=== PATIENT | female | born 1940 | race Caucasian/White ===

== ENCOUNTER 2022-09-01 16:08 | Inpatient (IN) | payer MEDICARE, SELFPAY ==
[2022-09-01 16:26] VITALS: BP 204/77; PULSE 71; RESP 16; TEMP 36.8; O2SAT 92
[2022-09-01] MEDS: Lisinopril 20 MG Tablet PO (17:07)
--- NOTE | 2022-09-01 17:42 | NURSING ---
pt stated she has had no vaccinations and does not want any
[2022-09-01] MEDS: metFORMIN HCl 500 MG Tablet PO (18:41)
[2022-09-01] MEDS: glipiZIDE 5 MG Tablet 2.5 MG PO (18:41)
[2022-09-01 19:04] VITALS: BP 139/64; PULSE 64; RESP 18; TEMP 36.6; O2SAT 95
[2022-09-01 19:51] VITALS: BMI 25.6
[2022-09-01 20:10] VITALS: O2SAT 96
--- NOTE | 2022-09-01 20:23 | EX.PCM.HP.RE ---
HPI - General General Date of Admission: 09/01/22 Date of Service: 09/01/22 Chief Complaint: Here for 3 hours daily rehabilitation, strengthening. HPI Narrative SHANTA MALONE, is a 81 Female who presents with followin08/31/2022 Patient presented to [facility] with right sided weakness, numbness. She had right sided weakness, numbness since 08/30/2022. Woke up with worsening numbness right side of face. In ER, she was hypertensive, with normal pulsox. H&H stable, UA negative, BUN 23, Creatinine 1.42. CT head negative, CTA head negative, CTA neck > 60% bilateral internal carotid arteries. Outside window for TPA. Admitted to [facility]. MRI brain showed acute ischemic infarct at the junction of the left posterior limb internal capsule, and posterior Putamen. PT/OT, Labetalol for blood pressure, restart Atorvastatin for stroke. Patient sees Dr. Alton Gardiner for bilateral carotid artery stenosis. SSI for Diabetes Mellitus II. 09/01/2022 Admit to for 3 hours daily rehabilitation, strengthening, prior to discharge home alone. [facility] Medical History (Updated 09/01/22 @ 20:[address] Lyle Gómez MD) Bilateral carotid artery stenosis Carpal tunnel syndrome of right wrist Coronary artery disease Diabetes History of ovarian cyst Hyperlipidemia Hypertension Kidney disease Nicotine dependence, cigarettes, uncomplicated Stroke/cerebrovascular accident Home Medications aspirin 81 mg capsule,delayed release 81 mg PO QODA [facility] 09/01/22 [History Last Taken Unknown] atorvastatin 40 mg tablet 40 mg PO QHS Cholestrol 09/01/22 [History Last Taken Unknown] furosemide 40 mg tablet (Lasix) 40 mg PO DAILY PRN Edema 09/01/22 [History Last Taken Unknown] glipizide 2.5 mg-metformin 500 mg tablet 1 tab PO BID Blood sugar 09/01/22 [History Last Taken Unknown] lisinopril 20 mg tablet 20 mg PO DAILY BP 09/01/22 [History Last Taken Unknown] Allergy/AdvReac Type Severity Reaction Status Date / Time nut - unspecified [nuts] AdvReac Severe Other Verified 09/01/22 16:47 Penicillins AdvReac Severe Other Verified 09/01/22 16:47 shellfish derived AdvReac Severe Other Verified 09/01/22 16:47 Sulfa (Sulfonamide AdvReac Severe Other Verified 09/01/22 16:47 Antibiotics) [sulfa drugs] Surgical History (Updated 09/01/22 @ 20:[address] Lyle Gómez MD) History of appendectomy History of carpal tunnel release History of hernia repair History of hysterectomy History of oophorectomy Social History (Updated 09/01/22 @ 20:[address] Lyle Gómez MD) household members: none Smoking Status: Heavy Smoker (>10/day) alcohol intake: never substance use type: does not use ROS Constitutional Constitutional: Denies chills, fever(s) or weight gain ENT HEENT: Denies headache(s), nasal congestion or nasal discharge Cardiovascular Cardiovascular: Denies chest pain or palpitations Respiratory/Chest Respiratory/Chest: Denies cough, excessive phlegm production or shortness of breath with exertion Gastrointestinal Gastrointestinal: Denies abdominal pain, nausea or vomiting Genitourinary Genitourinary: Denies dysuria Musculoskeletal Musculoskeletal: Denies joint pain or joint swelling Integumentary Integumentary: Denies rash or wounds Neurologic Neurologic: Denies focal weakness, numbness or tingling Psychiatric Psychiatric: Denies anxiety, auditory hallucinations, depression, homicidal ideation or suicidal ideation Vital Signs Vital Signs Vital Signs: 09/01/22 16:26 09/01/22 19:04 09/01/22 20:10 Temperature 98.2 F 97.9 F Temperature Source Temporal Temporal Pulse Rate 71 64 Respiratory Rate 16 18 Blood Pressure 204/77 H 139/64 H Blood Pressure Mean 119 89 Blood Pressure Source Monitor Monitor Blood Pressure Position Sitting Sitting Blood Pressure Location Right Forearm Left Arm Pulse Ox 92 95 96 Oxygen Delivery Method Room Air Room Air Room Air Weight Weight: 67.807 kg Body Mass Index (BMI) 25.6 Indicators for Scoring Admitted with or Primary Diagnosis of CVA/Stroke: Yes Hx of CVA/Stroke: No Modified [place] Score MRS Score at time of Evaluation: 4-Moderate/severe disability NIHSS NIHSS 1a. Level of Consciousness: Alert; keenly responsive 1b. LOC Questions: Answers BOTH questions correctly. 1c. LOC Commands: Performs both tasks correctly. 2. Best Gaze: Normal 3. Visual: No visual loss 4. Facial Palsy: Normal symmetrical movements 5a. Left Arm: No drift; arm holds 90 (or 45) degrees for full 10 seconds 5b. Right Arm: Some effort against gravity; 6a. Left Leg: No drift; leg holds 30-degree position for full 5 seconds 6b. Right Leg: Some effort against gravity; 7. Limb Ataxia: Present in 1 limb 8. Sensory: [id number] sensory loss; 9. Best Language: No aphasia; normal 10. Dysarthria: Normal 11. Extinction and Inattention: No abnormality Total: 6 Physical Exam Const alert General Appearance: cooperative HEENT normocephalic Eyes PERRL and EOMs intact bilaterally Neck supple, no JVD and no carotid bruits Resp normal respiratory effort, normal air movement and clear to auscultation bilaterally Cardio regular rate and regular rhythm GI normal to inspection, nondistended, normoactive bowel sounds, non-tender and non-distended Extremity normal capillary refill General Extremity: Negative for edema Skin no rashes or lesions noted General Skin Exam: no breakdown Neuro Neuro Narrative: Right hemiparesis. Psych affect normal Appearance: appropriate Assessment & Plan Assessment/Plan (1) Debility: (2) Left-sided cerebrovascular accident (CVA): (3) Right hemiparesis: (4) Nicotine dependence, cigarettes, uncomplicated: (5) Bilateral carotid artery stenosis: (6) Hyperlipidemia: (7) Diabetes mellitus: PLAN: Plan 81 year old female with below past medical history hospitalized for left sided stroke with right hemiparesis, admitted to for 3 hours daily rehabilitation, strengthening, prior to discharge home alone. Debility - PT/OT/ST. Pain - Tylenol 1000mg q6h prn pain (1-10). Bowel - senna/colace 2 tablets bid, Dulcolax 10mg pr daily prn, MOM 30ml daily prn. DVT prophylaxis - Lovenox 30mg sc daily. Stroke - Aspirin 81mg every other day. Hyperlipidemia - Atorvastatin 40mg qhs. Edema - Lasix 40mg daily prn. Diabetes Mellitus II - Metformin 500mg bid, Glipizide 2.5mg bid. Hypertension - Lisinopril 20mg daily.
[2022-09-01 22:00] VITALS: RESP 15
[2022-09-01] MEDS: Atorvastatin Calcium 40 MG Tablet PO (22:02)
[2022-09-01] MEDS: Senna/Docusate Sodium 1 Tablet 2 TABLET PO (22:02)
[2022-09-02] MEDS: Enoxaparin 30 MG/0.3 ML Syringe SC (05:06)
[2022-09-02 05:41] LABS: Hematocrit 31.5 % (37-47); Hemoglobin 10.1 g/dL (12.0-15.0); Mean Corp Hgb Conc 32.1 g/dL (32-36); Mean Corpuscular Hgb 32.4 pg (27.0-32.0); Mean Platelet Vol. 9.9 fl (6.2-12.0); Platelet Count 242 K/mm3 (150-450); RBC Distribution Width CV 12.6 % (11.6-14.6); RBC Distribution Width SD 46.6 fl (35.1-43.9); Red Blood Count 3.12 M/mm3 (4.2-5.4); White Blood Count 10.2 K/mm3 (4.4-11.0)
[2022-09-02 06:00] LABS: AST(SGOT) 11 U/L (15-37); Alanine Aminotransfer ALT/SGPT 19 U/L (13-56); Albumin, Serum 3.2 g/dL (3.2-5.0); Alkaline Phosphatase 74 U/L (45-117); Anion Gap 6 (5-15); BUN 33 mg/dL (7-18); BUN/Creat Ratio 17.8 RATIO (10-20); Chloride 109 mmol/L (98-107); Creatinine, Serum 1.85 mg/dL (0.55-1.02); EST Glomerular Filtration Rate 28 mL/min (>60); Est Glom Filt Rate - Afr Amer 34 mL/min (>60); Estimated Creatinine Clearance 20.59 ml/min; Globulin 3.3 g/dL (2.2-4.2); Glucose 120 mg/dL (74-106); Magnesium 2.1 mg/dL (1.6-2.6); Phosphorus 3.7 mg/dL (2.5-4.9); Potassium 4.1 mmol/L (3.5-5.1); Protein, Total 6.5 g/dL (6.4-8.2); Sodium Level 141 mmol/L (136-145)
[2022-09-02 07:22] VITALS: O2SAT 95
[2022-09-02 07:35] LABS: Bedside Glucose 122 mg/dL (74-106)
[2022-09-02 07:45] VITALS: BP 187/60; PULSE 76; RESP 16; TEMP 36.3; O2SAT 96
[2022-09-02] MEDS: Aspirin 81 MG TAB.CHEW PO (08:07)
[2022-09-02] MEDS: glipiZIDE 5 MG Tablet 2.5 MG PO ×2 (08:07→16:55)
[2022-09-02] MEDS: metFORMIN HCl 500 MG Tablet PO ×2 (08:07→16:56)
[2022-09-02] MEDS: Lisinopril 20 MG Tablet PO (08:09)
[2022-09-02] MEDS: Senna/Docusate Sodium 1 Tablet 2 TABLET PO (08:09)
--- NOTE | 2022-09-02 14:49 | CHAPLAIN ---
Type of Pastoral Visit _x__ Initial Visit ___ Follow-up Visit ___ On-call Visit ___ General Patient Visit ___ Spiritual Assessment ___ Family Conference ___ Bereavement ___ Rapid Response ___ Code Blue ___ Other (describe below) Pastoral Care Referral From _x__ Patient ___ Family ___ Nurse ___ Physician ___ Net Programmer Analyst ___ Underground Mine Machinery Mechanic ___ Other (describe below) Sacrament/Intervention _x__ Active listening ___ Anointing ___ Denominational ___ Bereavement ___ Communion _x__ Carmen exploration ___ _x__ Life review _x__ Prayer ___ Reconciliation ___ Sacrament of Sick ___ Supportive presence ___ Wedding ___ Other (describe below) Pastoral Comments patient welcomes spiritual care and emphasizes that her carmen and her pentecostalism are vital parts of her life; pt has led an active life and finds herself with changing circumstances; pt appears to be optimistic on recovery and willing to do her work; pt wants prayer and is open to further visits
--- NOTE | 2022-09-02 15:27 | PCM.RU.PYE ---
Admission Information Primary Diagnosis:: Stroke. Status Changes from Prescreening?: No changes Identified Actual Problem List:: Mobility Impaired, Ineffective Communication, Know.Dfct/Disease Process, BP, Hypertension and Alteration-Leisure Activ. Potential Problem List:: DVT, Bleeding, Infection, UTI, Aspiration, Falls, Skin Integrity and Depression Risk of Complications DVT: LMWH and ADITHYA Hose Bleeding: Monitor Lab Values, Nursing to Teach Precautions for anti-coagulation therapy. and Stroke patients assessed for lethargy or change in status. Infection: Clinical Staff to Monitor for S/S of infection: and S/S of infection include fever, redness, warmth, etc. Urinary Tract Infection: Monitor for frequency, burning, discomfort, or incontinence. and Nursing will obtain urine sample for urinalysis and C&S when ordered. Aspiration: Clinical staff will monitor for coughing, drooling, congestion., Speech will evaluate swallowing and dsyphasia. and Nursing will monitor patient swallowing during meals. Falls: Patient will be evaluated for Fall Precautions and Patient will be placed on Fall Precautions as indicated per protocol. Skin Breakdown: Nursing will assess skin daily using assessment tool. and Nursing will place on Skin Breakdown Precautions as indicated. Pain: Clinical staff will assess patient's pain level per protocol., Medications will be given, if needed, and the pain level reassessed. and Other methods: Massage, distraction, decrease stimulus, etc. used PRN. Plan of Care Patient requires physician specializing in physical medicine and rehab oversight to provide close medical supervision of rehab issues including: Pain Management, Sleep Problems, Bowel and Bladder, Medical and co-morbidity Management, DVT prophylaxis, Rehabilitation Leadership and Coordination of treatment team Patient needs Physical Therapy: For a minimum of 1 hour Patient needs Physical Therapy to improve:: Mobility, Strengthening, Transfers, ROM, Endurance, Stairs and Gait Patient needs Occupational Therapy: For a minimum of 1 hour Patient needs Occupational Therapy to improve ADL's incl.: Grooming, Bathing, Dressing, Toileting, Toilet transfers, Community Reintegration, Higher functioning activities, Household tasks, Adaptive Equipment and Other activities as determined Patient requires speech therapy: For a minimum of 1 hour Patient requires speech therapy for: Cognition and Language Skills Patient requires 24/7 Rehabilitation Nursing for: Pain Issues, Identifying and preventing risk factors, Monitoring and reporting current medical conditions, Assisting with ambulation, transfer, and all ADL's, Teaching patients about disease process and medications, Family teaching, Providing safe environment, Bowel and Bladder Issues, Skin integrity and Medication Management Patient needs Multiple Tube Winding Machine Operator/ Case Management for: Discharge Planning, Arranging Home Equipment or Services and Family Interventions Patient needs Dietary and Nutrition Services for: Adequate Nutrition, Nutritional Supplements and Nutritional Education Goals Patient will remain: free from falls Patient will perform bed mobility at: MOD I level of assist. Patient will complete transfers from bed to chair at: MOD I level of assist. Patient will ambulate: with MOD I assist Patient will complete upper body dressing at: MOD I level of assist. Patient will complete lower body dressing at: MOD I level of assist. Patient will complete toileting at: MOD I level of assist. Patient will perform bathing at: MOD I level of assist. Patient will complete grooming at: MOD I level of assist. Patient will complete home management skills at: MOD I level of assist. Patient will achieve: at MOD I assist Patient will have pain level of: of 3 or less Patient's skin will: remain intact and free from infection. Patient will receive: adequate nutrition. Discharge Planning Pt Prognosis for Sig. Practical Improv. w/in Reasonable Time: Good Estimated Length of stay (days): 21 Anticipated D/C Destination: Home with Home Health Was Preadmission Assessment Accurate?: Yes
[2022-09-02 16:35] VITALS: BP 167/82; PULSE 77
[2022-09-02 16:57] VITALS: PULSE 77
[2022-09-02] MEDS: Losartan Potassium 100 MG Tablet PO (16:57)
[2022-09-02] MEDS: Metoprolol Tartrate 25 MG Tablet 12.5 MG PO ×2 (16:57→21:00)
[2022-09-02 17:30] LABS: Bedside Glucose 188 mg/dL (74-106)
--- NOTE | 2022-09-02 18:43 | NURSING ---
Patient is pleasant and using bsc for transfers. Alert and oriented with cues.
[2022-09-02 19:41] VITALS: BP 140/72; PULSE 77; RESP 17; TEMP 36.4; O2SAT 96
[2022-09-02 21:00] VITALS: BP 140/72; PULSE 77
[2022-09-02] MEDS: Atorvastatin Calcium 40 MG Tablet PO (21:01)
[2022-09-03] MEDS: Enoxaparin 30 MG/0.3 ML Syringe SC (05:52)
[2022-09-03] MEDS: Acetaminophen 500 MG Tablet 1000 MG PO (05:52)
[2022-09-03 07:20] LABS: Bedside Glucose 138 mg/dL (74-106)
[2022-09-03 07:36] VITALS: BP 178/63; PULSE 59; RESP 16; TEMP 37; O2SAT 94
[2022-09-03] MEDS: Losartan Potassium 100 MG Tablet PO (07:48)
[2022-09-03] MEDS: metFORMIN HCl 500 MG Tablet PO ×2 (07:48→16:43)
[2022-09-03] MEDS: glipiZIDE 5 MG Tablet 2.5 MG PO ×2 (07:49→16:44)
[2022-09-03 07:51] VITALS: PULSE 59
[2022-09-03] MEDS: Metoprolol Tartrate 25 MG Tablet 12.5 MG PO ×2 (07:51→21:14)
[2022-09-03 17:31] LABS: Bedside Glucose 140 mg/dL (74-106)
[2022-09-03 19:29] VITALS: BP 160/90; PULSE 82; RESP 17; TEMP 36.4
[2022-09-03 21:14] VITALS: BP 160/90; PULSE 82
[2022-09-03] MEDS: Atorvastatin Calcium 40 MG Tablet PO (21:14)
[2022-09-04] MEDS: Enoxaparin 30 MG/0.3 ML Syringe SC (05:52)
[2022-09-04 06:26] LABS: Bedside Glucose 148 mg/dL (74-106)
[2022-09-04] MEDS: Aspirin 81 MG TAB.CHEW PO (07:53)
[2022-09-04] MEDS: metFORMIN HCl 500 MG Tablet PO ×2 (07:54→16:42)
[2022-09-04] MEDS: Losartan Potassium 100 MG Tablet PO (07:54)
[2022-09-04 07:55] VITALS: PULSE 77
[2022-09-04] MEDS: glipiZIDE 5 MG Tablet 2.5 MG PO ×2 (07:55→16:42)
[2022-09-04] MEDS: Metoprolol Tartrate 25 MG Tablet 12.5 MG PO ×2 (07:55→21:16)
[2022-09-04 08:00] VITALS: BP 180/80; PULSE 56; RESP 18; TEMP 36.6; O2SAT 97
[2022-09-04 10:14] VITALS: O2SAT 96
[2022-09-04 16:46] LABS: Bedside Glucose 112 mg/dL (74-106)
[2022-09-04 20:21] VITALS: BP 168/62; PULSE 82; RESP 16; TEMP 36.2; O2SAT 96
[2022-09-04 21:16] VITALS: BP 168/62; PULSE 82
[2022-09-04] MEDS: Atorvastatin Calcium 40 MG Tablet PO (21:17)
[2022-09-05] MEDS: Enoxaparin 30 MG/0.3 ML Syringe SC (05:32)
[2022-09-05 07:06] LABS: Bedside Glucose 141 mg/dL (74-106)
[2022-09-05] MEDS: metFORMIN HCl 500 MG Tablet PO ×2 (07:47→17:16)
[2022-09-05] MEDS: glipiZIDE 5 MG Tablet 2.5 MG PO ×2 (07:48→17:16)
[2022-09-05] MEDS: Losartan Potassium 100 MG Tablet PO (07:49)
[2022-09-05 07:50] VITALS: BP 158/65; PULSE 59; RESP 16; TEMP 36.3; O2SAT 97
[2022-09-05 07:51] VITALS: BP 158/65; PULSE 59
[2022-09-05] MEDS: Metoprolol Tartrate 25 MG Tablet 12.5 MG PO ×2 (07:51→21:08)
--- NOTE | 2022-09-05 09:50 | CASEMGMT ---
Social Work IDT met with patient and son via conference call for Team meeting. Discussed patient's progress in PT/OT/ST/SN. Educated to Medicare approval of 23 days with EDC 09/24. Pt wishing to DC prior. IDT encouraged pt to take it a week at a time, but this amount of time will provide for optimal improvement. Son agrees. Pts goal is to return home alone. SW to continue to follow for DC planning. Will ReTeam next week. YESSY PeoplesW
[2022-09-05] MEDS: amLODIPine 5 MG Tablet PO (11:01)
[2022-09-05 18:20] LABS: Bedside Glucose 145 mg/dL (74-106)
[2022-09-05 19:22] VITALS: BP 182/62; PULSE 58; RESP 18; TEMP 36.8; O2SAT 96
--- NOTE | 2022-09-05 19:22 | PN_ITS ---
Subjective Subjective Patient seen, examined on Team Rounds. Her son Jamie was available by telephone. She has made progress in therapy in the 5 days. Her sugars are well controlled, her blood pressure less so, but her blood pressure medications are continuing to be adjusted. She has no new problems, concerns, issues, complaints. Objective Data Objective Data Vital Signs: Vital Signs Temp Pulse Resp BP Pulse Ox O2 Del Method 97.4 F L 59 L 16 158/65 H 97 Room Air 09/05/22 07:50 09/05/22 07:51 09/05/22 07:50 09/05/22 07:51 09/05/22 07:50 09/05/22 07:50 Oxygen Delivery Method Room Air Weight: 67.807 kg Body Mass Index (BMI) 25.6 Intake & Output: Intake and Output for Last 24 Hours 09/03/22 09/04/22 09/05/22 23:59 23:59 23:59 Intake Total 50 / 50 Output Total 400 / 400 Balance -400 / -400 50 / 50 Lab / Micro Data Result Diagrams: 09/02/22 05:32 09/02/22 05:32 Labs: Laboratory Results - last 24 hr 09/05/22 06:40: POC Glucose 141 H 09/05/22 17:58: POC Glucose 145 H Physical Exam Const alert General Appearance: cooperative HEENT normocephalic Eyes PERRL and EOMs intact bilaterally Neck supple, no JVD and no carotid bruits Resp normal respiratory effort, normal air movement and clear to auscultation bilaterally Cardio regular rate and regular rhythm GI normal to inspection, nondistended, normoactive bowel sounds, non-tender and non-distended Extremity normal capillary refill General Extremity: Negative for edema Skin no rashes or lesions noted General Skin Exam: no breakdown Neuro Neuro Narrative: Mild right hemiparesis. Psych affect normal Appearance: appropriate Assessment & Plan Assessment/Plan (1) Debility: (2) Left-sided cerebrovascular accident (CVA): (3) Right hemiparesis: (4) Nicotine dependence, cigarettes, uncomplicated: (5) Bilateral carotid artery stenosis: (6) Hyperlipidemia: (7) Diabetes mellitus: PLAN: Plan 81 year old female with below past medical history hospitalized for left sided stroke with right hemiparesis, admitted to for 3 hours daily rehabilitation, strengthening, prior to discharge home alone. * Debility - PT/OT/ST. * Pain - Tylenol 1000mg q6h prn pain (1-10). * Bowel - senna/colace 2 tablets bid, Dulcolax 10mg pr daily prn, MOM 30ml daily prn. * DVT prophylaxis - Lovenox 30mg sc daily. * Stroke - Aspirin 81mg every other day. * Hyperlipidemia - Atorvastatin 40mg qhs. * Edema - Lasix 40mg daily prn. * Diabetes Mellitus II - Metformin 500mg bid, Glipizide 2.5mg bid. * Hypertension - Metoprolol 12.5mg bid, Losartan 100mg daily, Add Amlodipine 5mg daily today. * Nicotine dependence - Encouraged her to stop smoking. Capacity Capacity Assessment Tool Can the patient make a choice & communicate that choice?: Yes Can the patient understand benefits, risks and alternatives?: Yes Can the patient make a logical, rational choice?: Yes Is the choice the patient makes consistent w/ their values?: Yes Is there an impending, emergent risk to the patient?: No Does the patient have an Advance Directive?: Yes Is there a Surrogate Available?: Yes i.e. HCPOA: Yes i.e. close relative (spouse, child, parent, sibling)?: Yes
[2022-09-05 20:20] VITALS: O2SAT 96
[2022-09-05 21:08] VITALS: BP 182/62; PULSE 58
[2022-09-05] MEDS: Atorvastatin Calcium 40 MG Tablet PO (21:08)
[2022-09-06] VITALS (8 sets, daily range): BP systolic 108–158; BP diastolic 43–57; PULSE 57–63; RESP 16; TEMP 36.1–36.4; O2SAT 96–98
[2022-09-06] MEDS: Enoxaparin 30 MG/0.3 ML Syringe SC (05:08)
[2022-09-06 07:01] LABS: Bedside Glucose 137 mg/dL (74-106)
[2022-09-06] MEDS: amLODIPine 5 MG Tablet PO (08:20)
[2022-09-06] MEDS: Senna/Docusate Sodium 1 Tablet 2 TABLET PO ×2 (08:20→22:22)
[2022-09-06] MEDS: Metoprolol Tartrate 25 MG Tablet 12.5 MG PO ×2 (08:20→22:21)
[2022-09-06] MEDS: metFORMIN HCl 500 MG Tablet PO (08:23)
[2022-09-06] MEDS: Aspirin 81 MG TAB.CHEW PO (08:23)
[2022-09-06] MEDS: glipiZIDE 5 MG Tablet 2.5 MG PO (08:23)
[2022-09-06] MEDS: Losartan Potassium 100 MG Tablet PO (08:24)
--- NOTE | 2022-09-06 09:01 | PCM.PROGNOTE ---
Subjective Subjective Afebrile VSS - BP is not at goal. systolics are ranging form a low of 140 to a high of 182. diastolics are within goal. Blood pressure medications include amlodipine 5 mg daily in the a.m., losartan 100 mg daily in the a.m. and metoprolol 12.5 mg p.o. twice daily. Maintaining appropriate oxygen saturation on RA Oral intake is not being recorded. She did eat 75 to 100% of her breakfast this morning. Post void residuals are less than 100. Occasional urine incontinence. no BM since 09/02......has been refusing stool softeners since she had diarrhea on the . Blood sugar record was reviewed. All blood sugars are under 200. She is currently on glipizide 2.5 mg twice daily and Glucophage 500 mg twice daily. Discussed with nursing - no problems that need addressed Reviewed the PT/OT/ST notes Medication list reviewed. Currently on ASA and statin for stroke. BS's are controlled. Taking 30 mg Lovenox daily for DVT prophylaxis...... creat clearance is only 20.6 on 09/02/22. RF's for stroke include age, DM II (not adequately controlled), HTN, tobacco dependence, dyslipidemia, known carotid stenosis BL. PMH: BL carotid vascular stenosis (on CT angiography of neck on 08/31/22), HTN, DM II, tobacco dependence, CRF, ischemic stroke 08/31/22 with MRI showing ischemic infarct at the junction of the left posterior limb internal capsule and posterior putamen, BL maxillary retention cysts, COPD?( has used albuterol HFA in the past on review of her paperwork from [facility]. ECHO -ventricular hypertrophy with normal systolic function and an estimated ejection fraction of 55 to 60%. Diastolic dysfunction was present. Ventricular septum is severely increased at 1.5 cm. The left atrium is dilated right atrium is normal in size. LAB: TSH and free T4 are normal. Total cholesterol was 158, triglycerides 102, HDL 69 and LDL 69 on 40 mg of atorvastatin daily. Creatinine was 1. 5 7 with a BUN of 35 on 09/01/2022. Hemoglobin A1c is not adequately controlled at 7.5%. Hemoglobin on 09/01/2022 was 9.6, down from 11.7 on 08/31/2022. Platelets were normal. MCV was elevated at 95.9. Cora denies lightheadedness, vertigo, CP, SOB at rest, SOB with exertion, cough, nausea, vomiting, abd pain, diarrhea, constipation, dysuria, calf pain and ankle swelling. She denies cephalgia. She notices some numbness in her lower right face. Denies trouble swallowing. Objective Data Objective Data Vital Signs: Vital Signs Temp Pulse Resp BP Pulse Ox O2 Del Method 97.0 F L 60 16 140/57 H 98 Room Air 09/06/22 07:25 09/06/22 08:20 09/06/22 07:25 09/06/22 08:20 09/06/22 07:25 09/06/22 07:25 Oxygen Delivery Method Room Air Weight: 149 lb 7.82 oz Body Mass Index (BMI) 25.6 Intake & Output: Intake and Output for Last 24 Hours 09/04/22 09/05/22 09/06/22 23:59 23:59 23:59 Intake Total 50 / 50 180 / 180 Balance 50 / 50 180 / 180 Lab / Micro Data Result Diagrams: 09/06/22 10:00 09/06/22 10:00 Labs: Laboratory Results - last 24 hr 09/05/22 17:58: POC Glucose 145 H 09/06/22 06:41: POC Glucose 137 H Physical Exam Const alert, oriented x3 and no apparent distress Constitutional Narrative: Lying in bed at the time of my exam. She is pleasant, appropriate and talkative. General Appearance: cooperative HEENT normocephalic Mouth: dry mucous membranes Eyes EOMs intact bilaterally Eyes Narrative: Both pupils are irregular secondary to prior cataract extraction. The pupils are responsive to light. Neck No nuchal rigidity, supple and no carotid bruits General: trachea midline Resp normal respiratory effort, normal air movement and clear to auscultation bilaterally Effort and Inspection: Negative for tachypneic Cardio regular rate, regular rhythm, S1 normal heart sound, S2 normal heart sound, no murmurs, no rub and no gallops Cardio Narrative: No ectopy GI normal to inspection, nondistended, normoactive bowel sounds, soft to palpation and non-tender GI Narrative: No guarding with palpation. Extremity no calf tenderness General Extremity: Negative for clubbing or cyanosis Skin General Skin Exam: no breakdown Rashes: no rashes Neuro Neuro Narrative: Decreased sensation R face, arm and leg. Drift with the RUE but, the arm does not hit the bed. Mild ataxia with the RUE. No drift and no ataxia with the RLE. No dysarthria and no aphasia. Psych cooperative and affect normal Appearance: appropriate Assessment & Plan Assessment/Plan (1) Debility: (2) Left-sided cerebrovascular accident (CVA): PLAN: ischemic (3) Right hemiparesis: PLAN: with decreased sensation on the R face, RUE and RLE (4) Bilateral carotid artery stenosis: (5) Uncontrolled type 2 diabetes mellitus: (6) LVH (left ventricular hypertrophy): (7) Diastolic dysfunction: (8) Chronic renal failure: (9) Macrocytic anemia: (10) Nicotine dependence, cigarettes, uncomplicated: PLAN: Tobacco dependence counseling given. (11) Hyperlipidemia: PLAN: Plan 1. Hold the Glucotrol and the Metformin due to increasing renal failure. Start SSI with Lispro - low dose scale. 2. Stat BMP. Phos, mag, CBC with diff. 3. accurate I&O. 4. Daily weights 5. DC Norvasc and start Hydralazine for better BP control. Add PRN IV Hydralazine for sys>160 and diastolic>85. 6. Obtain baseline labs from Dr. Travis. 7. Dulcolax tab today since she has not had a BM in 4 days. I suspect she likely has increasing renal failure. Oral intakes not being recorded and no wt since admission but, suspect she is not drinking enough and may need IV fluids. Charges/Coding Visit Charges Inpatient E&M: 59671 Subs Hosp L3
[2022-09-06 10:47] LABS: Absolute Lymphocyte Count 2.53 X10^3/uL (0.83-4.51); Absolute Neutrophil Count 5.2 X10^3/uL (2.0-7.7); Basophil# 0.06 X10^3/uL; Basophil% 0.7 % (0-1); Eosinophil# 0.09 X10^3/uL; Eosinophils% 1.1 % (0-5); Hematocrit 33.3 % (37-47); Hemoglobin 11.3 g/dL (12.0-15.0); Lymphocyte # 2.53 X10^3/ul (0.83-4.51); Mean Corp Hgb Conc 33.9 g/dL (32-36); Mean Corpuscular Hgb 33.7 pg (27.0-32.0); Mean Corpuscular Volume 99.4 fL (81-99); Mean Platelet Vol. 11.2 fl (6.2-12.0); Monocyte# 0.53 X10^3/uL; Monocyte% 6.3 % (0-10); NRBC Flagged by Analyzer 0 % (0-5); Neutrophil % 61.7 % (47-70); Platelet Count 259 K/mm3 (150-450); RBC Distribution Width CV 12.3 % (11.6-14.6); RBC Distribution Width SD 44.8 fl (35.1-43.9); Red Blood Count 3.35 M/mm3 (4.2-5.4); White Blood Count 8.4 K/mm3 (4.4-11.0)
[2022-09-06 10:59] LABS: Anion Gap 5 (5-15); BUN 27 mg/dL (7-18); BUN/Creat Ratio 17.9 RATIO (10-20); Calcium,Total 9.1 mg/dL (8.5-10.1); Chloride 106 mmol/L (98-107); Creatinine, Serum 1.51 mg/dL (0.55-1.02); EST Glomerular Filtration Rate 35 mL/min (>60); Est Glom Filt Rate - Afr Amer 42 mL/min (>60); Estimated Creatinine Clearance 25.23 ml/min; Glucose 189 mg/dL (74-106); Magnesium 2.3 mg/dL (1.6-2.6); Potassium 4.1 mmol/L (3.5-5.1); Sodium Level 138 mmol/L (136-145)
[2022-09-06 11:02] LABS: Phosphorus 4.1 mg/dL (2.5-4.9)
[2022-09-06] MEDS: Bisacodyl 5 MG Tablet 10 MG PO (11:33)
[2022-09-06 12:06] LABS: Bedside Glucose 130 mg/dL (74-106)
[2022-09-06 13:42] LABS: Vitamin B12 255 pg/mL (211-911)
[2022-09-06] MEDS: hydrALAZINE 50 MG Tablet PO ×2 (14:29→22:22)
[2022-09-06 16:50] LABS: Bedside Glucose 143 mg/dL (74-106)
[2022-09-06] MEDS: Atorvastatin Calcium 40 MG Tablet PO (22:21)
[2022-09-06 23:16] LABS: Bedside Glucose 142 mg/dL (74-106)
[2022-09-07] VITALS (7 sets, daily range): BP systolic 128–133; BP diastolic 37–58; PULSE 54–58; RESP 16–58; TEMP 36.2–36.3; O2SAT 98–99; BMI 25.6
[2022-09-07] MEDS: hydrALAZINE 50 MG Tablet PO ×3 (04:42→22:02)
[2022-09-07] MEDS: Enoxaparin 30 MG/0.3 ML Syringe SC (04:43)
[2022-09-07 06:50] LABS: Bedside Glucose 155 mg/dL (74-106)
[2022-09-07] MEDS: Metoprolol Tartrate 25 MG Tablet 12.5 MG PO ×2 (08:36→22:02)
[2022-09-07] MEDS: Losartan Potassium 100 MG Tablet PO (08:36)
[2022-09-07] MEDS: Insulin Lispro 100 UNIT/ML INSULN.PEN SC ×4 (09:59→22:05)
--- NOTE | 2022-09-07 10:30 | PN_ITS ---
Subjective Subjective Afebrile Vital signs stable-blood pressure is improved today and is currently 130/50. Heart rate is 56. Maintaining appropriate oxygen saturation on room air. Better oral intake yesterday of 1710 cc. Ate 25-49% of breakfast......does better for lunch and supper usually Blood sugar record was reviewed and the blood sugars are under good control on the current drug regimen. She had to have a laxative yesterday for no BM since the and she had been refusing stool softeners. She had a loose stool and some nausea and unfortunately was told it was probably due to Hydralazine that was started yesterday and now she does not want to take the medication. Med list reviewed. The metformin and Glucotrol are on hold due to creat clear only being 20 recently. It is up to 25 yesterday but, will continue to hold. Continue SSI......she has only needed 1 unit of insulin since the SSI was started yesterday. awaiting the records from Dr. Travis to see what her baseline creat has been running over the past few months. B12 is 255 which is low normal. Vitamin D level is very low at 8 and folate is within normal limits. Claritin as needed she had some nausea this a.m. but this is resolved and she had no emesis. She is ready to eat her lunch. She denies abdominal pain. She also denies lightheadedness, vertigo, cephalgia, shortness of breath, chest pain, palpitations, dysuria and calf pain. She was able to complete her PT today. Objective Data Objective Data Vital Signs: Vital Signs Temp Pulse Resp BP Pulse Ox O2 Del Method 97.4 F L 56 L 16 130/50 H 99 Room Air 09/07/22 07:39 09/07/22 08:36 09/07/22 07:39 09/07/22 08:36 09/07/22 07:39 09/06/22 22:00 Oxygen Delivery Method Room Air Weight: 144 lb 2.917 oz Body Mass Index (BMI) 25.6 Intake & Output: Intake and Output for Last 24 Hours 09/05/22 09/06/22 09/07/22 23:59 23:59 23:59 Intake Total 1710 / 1710 120 / 120 Balance 1710 / 1710 120 / 120 Lab / Micro Data Result Diagrams: 09/06/22 10:00 09/06/22 10:00 Labs: Laboratory Results - last 24 hr 09/06/22 10:00: Phosphorus 4.1 09/06/22 10:00: Sodium 138, Potassium 4.1, Chloride 106, Carbon Dioxide 27.0, Anion Gap 5, BUN 27 H, Creatinine 1.51 H, Estim Creat Clear Calc 25.23, Est GFR (MDRD) Af Amer 42 L, Est GFR (MDRD) Non-Af 35 L, BUN/Creatinine Ratio 17.9, Glucose 189 H, Calcium 9.1, Magnesium 2.3 09/06/22 10:00: WBC 8.4, RBC 3.35 L, Hgb 11.3 L, Hct 33.3 L, MCV 99.4 H, MCH 33.7 H, MCHC 33.9 D, RDW Std Deviation 44.8 H, RDW Coeff of Daron 12.3, Plt Count 259, MPV 11.2, Immature Gran % (Auto) 0.200, Neut % (Auto) 61.7, Lymph % (Auto) 30.0, Gem % (Auto) 6.3, Eos % (Auto) 1.1, Baso % (Auto) 0.7, Absolute Neuts (auto) 5.2, Absolute Lymphs (auto) 2.53, Nucleated RBC % 0 09/06/22 10:00: Vitamin B12 255, Vitamin D 25-Hydroxy 8.0 09/06/22 10:00: Folate 15.80 09/06/22 11:34: POC Glucose 130 H 09/06/22 16:13: POC Glucose 143 H 09/06/22 22:20: POC Glucose 142 H 09/07/22 06:33: POC Glucose 155 H Micro: Microbiology 09/07/22 01:20 Stool Stool Occult Blood (AGUSTIN) - Final Physical Exam Const alert and no apparent distress Constitutional Narrative: sitting in the recliner at the bedside ready to eat her lunch. General Appearance: cooperative HEENT normocephalic Mouth: dry mucous membranes Resp clear to auscultation bilaterally Cardio regular rate, regular rhythm and no gallops GI normal to inspection, nondistended, normoactive bowel sounds, soft to palpation and non-tender GI Narrative: No guarding with palpation. Extremity no calf tenderness General Extremity: Negative for edema Skin General Skin Exam: no breakdown Rashes: no rashes Assessment & Plan Assessment/Plan (1) Debility: (2) Left-sided cerebrovascular accident (CVA): (3) Right hemiparesis: (4) Bilateral carotid artery stenosis: (5) Nicotine dependence, cigarettes, uncomplicated: (6) Chronic renal failure: PLAN: currently the creat clearance is < 30. We requested lab from the past 3-[address] Travis but, we were unfortunately sent only the labs we already have from her admission to [facility] and no info and what her baseline creat is. (7) Uncontrolled type 2 diabetes mellitus: PLAN: with a creat clearance less than 30 she should not be on Metformin due to the increased risk for lactic acidosis. (8) Vitamin D deficiency: (9) Hypertension: PLAN: Coming under better control with adjustments to the antihypertensive regimen. PLAN: Plan 1. Continue therapy 2. Add a vitamin D supplement to her daily drug regimen. 3. Continue hydralazine 4. Encouraged her to take the stool softeners so that we do not have to continue to give laxatives after she does not have a bowel movement for for 5 days. 5. Continue to hold Glucotrol and metformin. she is at risk for lactic acidosis with Metformin so unless the creat significantly improves will not likely be able to continue with this medication. Consider Amaryl 1 mg daily. Charges/Coding Visit Charges Inpatient E&M: 96887 Subs Hosp L2
[2022-09-07 11:20] LABS: Bedside Glucose 166 mg/dL (74-106)
[2022-09-07 17:20] LABS: Bedside Glucose 157 mg/dL (74-106)
[2022-09-07] MEDS: Atorvastatin Calcium 40 MG Tablet PO (22:02)
[2022-09-07 22:45] LABS: Bedside Glucose 235 mg/dL (74-106)
[2022-09-08] VITALS (7 sets, daily range): BP systolic 123–126; BP diastolic 40–65; PULSE 57–63; RESP 16–18; TEMP 36.3–36.6; O2SAT 97–100; BMI 25.6
[2022-09-08] MEDS: hydrALAZINE 50 MG Tablet PO ×3 (05:01→20:38)
[2022-09-08] MEDS: Enoxaparin 30 MG/0.3 ML Syringe SC (05:01)
[2022-09-08 07:01] LABS: Bedside Glucose 191 mg/dL (74-106)
[2022-09-08] MEDS: Senna/Docusate Sodium 1 Tablet 2 TABLET PO ×2 (08:08→20:38)
[2022-09-08] MEDS: Losartan Potassium 100 MG Tablet PO (08:08)
[2022-09-08] MEDS: Insulin Lispro 100 UNIT/ML INSULN.PEN SC ×4 (08:08→22:02)
[2022-09-08] MEDS: Aspirin 81 MG TAB.CHEW PO (08:08)
[2022-09-08] MEDS: Metoprolol Tartrate 25 MG Tablet 12.5 MG PO ×2 (08:08→20:38)
[2022-09-08] MEDS: Cholecalciferol (VIT D3) 25 MCG TABLET (1,000 UNITS) 50 MCG PO (08:08)
--- NOTE | 2022-09-08 10:00 | PCM.PROGNOTE ---
Subjective Subjective Afebrile VSS-blood pressure is well controlled now with transition to hydralazine. Heart rate is within normal limits this morning. Maintaining appropriate oxygen saturation on RA Oral intake is fair. She took 1140 p.o. and fluids yesterday. Blood sugar record was reviewed. Blood sugars have started to increase now that she is off Glucotrol and metformin. At bedtime blood sugar was 235 and the fasting this morning was 191. Discussed with nursing - no problems that need addressed Reviewed the PT/OT/ST notes Medication list reviewed. Denies N/abd discomfort/diarrhea today. She has been up and appropriate and doing everything asked of her by the therapists. she is pleasant. No lightheadedness and also denies cough, SOB, CP, dysuria. Objective Data Objective Data Vital Signs: Vital Signs Temp Pulse Resp BP Pulse Ox O2 Del Method 97.8 F 61 18 124/61 H 97 Room Air 09/08/22 07:21 09/08/22 08:08 09/08/22 07:21 09/08/22 08:08 09/08/22 07:21 09/08/22 07:21 Oxygen Delivery Method Room Air Weight: 145 lb 11.609 oz Body Mass Index (BMI) 25.6 Intake & Output: Intake and Output for Last 24 Hours 09/06/22 09/07/22 09/08/22 23:59 23:59 23:59 Intake Total 1710 / 1710 1140 / 1140 300 / 300 Output Total 450 / 700 550 / 550 Balance 1710 / 1710 690 / 440 -250 / -250 Lab / Micro Data Result Diagrams: 09/06/22 10:00 09/06/22 10:00 Labs: Laboratory Results - last 24 hr 09/07/22 10:53: POC Glucose 166 H 09/07/22 16:59: POC Glucose 157 H 09/07/22 21:33: POC Glucose 235 H 09/08/22 06:44: POC Glucose 191 H Micro: Microbiology 09/07/22 01:20 Stool Stool Occult Blood (AGUSTIN) - Final Physical Exam Const alert, oriented x3 and no apparent distress HEENT Mouth: dry mucous membranes Resp clear to auscultation bilaterally Cardio regular rate, regular rhythm and no gallops GI normal to inspection, nondistended, normoactive bowel sounds, soft to palpation and non-tender GI Narrative: no guarding with palpation Extremity no calf tenderness General Extremity: Negative for edema Skin General Skin Exam: no breakdown Rashes: no rashes Psych cooperative Psych Narrative: not anxious, short term memory is still and issue.......I had to explain again to her why it is important to take the stool softerners so we don't end up having to give laxatives when she does not go for 4 days in a row. Appearance: appropriate Assessment & Plan Assessment/Plan (1) Debility: (2) Left-sided cerebrovascular accident (CVA): (3) Right hemiparesis: (4) Hypertension: PLAN: Controlled with transitioning from Norvasc to Hydralazine TID. (5) Uncontrolled type 2 diabetes mellitus: (6) Chronic renal failure: PLAN: We still have not received any baseline labs for the past 6 months for kidney function from Dr. Travis's office. Oral intake has improved a little and she is no longer on a diuretic. PLAN: Plan 1. continue therapy 2. Discontinue metformin and Glucotrol and start Amaryl 1 mg p.o. daily-start today. Continue to monitor 4 times daily blood sugars for the next few days. Need to assume that she has at least stage 3 CRF.......Will recheck aother BMP over the weekend and continue to encourage increased fluid intake. Charges/Coding Visit Charges Inpatient E&M: 84602 Subs Hosp L2
[2022-09-08 11:20] LABS: Bedside Glucose 164 mg/dL (74-106)
[2022-09-08] MEDS: Glimepiride 1 MG Tablet PO (11:52)
[2022-09-08 16:30] LABS: Bedside Glucose 161 mg/dL (74-106)
[2022-09-08] MEDS: Atorvastatin Calcium 40 MG Tablet PO (20:38)
[2022-09-08 21:26] LABS: Bedside Glucose 192 mg/dL (74-106)
[2022-09-08 22:41] LABS: Bedside Glucose 162 mg/dL (74-106)
[2022-09-09] VITALS (8 sets, daily range): BP systolic 101–136; BP diastolic 33–55; PULSE 47–78; RESP 16–18; TEMP 36.3–36.6; O2SAT 95–96; BMI 25.6
[2022-09-09 06:26] LABS: Bedside Glucose 144 mg/dL (74-106)
[2022-09-09] MEDS: Enoxaparin 30 MG/0.3 ML Syringe SC (06:28)
[2022-09-09] MEDS: hydrALAZINE 50 MG Tablet PO ×3 (06:30→20:49)
[2022-09-09] MEDS: Cholecalciferol (VIT D3) 25 MCG TABLET (1,000 UNITS) 50 MCG PO (07:47)
[2022-09-09] MEDS: Glimepiride 1 MG Tablet PO (07:47)
[2022-09-09] MEDS: Senna/Docusate Sodium 1 Tablet 2 TABLET PO (07:47)
[2022-09-09] MEDS: Losartan Potassium 100 MG Tablet PO (09:46)
[2022-09-09] MEDS: Metoprolol Tartrate 25 MG Tablet 12.5 MG PO ×2 (09:46→20:48)
[2022-09-09 11:25] LABS: Bedside Glucose 238 mg/dL (74-106)
[2022-09-09] MEDS: Insulin Lispro 100 UNIT/ML INSULN.PEN SC ×2 (12:09→20:49)
--- NOTE | 2022-09-09 14:29 | NURSING ---
Notified Dr. Menon of pt's V.S. received order to administer Apresoline.
[2022-09-09 16:31] LABS: Bedside Glucose 111 mg/dL (74-106)
[2022-09-09] MEDS: Atorvastatin Calcium 40 MG Tablet PO (20:49)
[2022-09-09 22:26] LABS: Bedside Glucose 213 mg/dL (74-106)
[2022-09-10] VITALS (8 sets, daily range): BP systolic 107–120; BP diastolic 43–58; PULSE 54–77; RESP 14–16; TEMP 36.6–37.1; O2SAT 97–99; BMI 25.6
[2022-09-10] MEDS: hydrALAZINE 50 MG Tablet PO ×3 (06:23→20:29)
[2022-09-10] MEDS: Enoxaparin 30 MG/0.3 ML Syringe SC (06:23)
[2022-09-10 07:20] LABS: Bedside Glucose 121 mg/dL (74-106)
[2022-09-10] MEDS: Aspirin 81 MG TAB.CHEW PO (09:05)
[2022-09-10] MEDS: Glimepiride 2 MG Tablet PO (09:05)
[2022-09-10] MEDS: Losartan Potassium 50 MG Tablet PO (09:05)
[2022-09-10] MEDS: Metoprolol Tartrate 25 MG Tablet 12.5 MG PO ×2 (09:05→20:29)
[2022-09-10] MEDS: Cholecalciferol (VIT D3) 25 MCG TABLET (1,000 UNITS) 50 MCG PO (09:06)
[2022-09-10 11:31] LABS: Bedside Glucose 211 mg/dL (74-106)
[2022-09-10] MEDS: Insulin Lispro 100 UNIT/ML INSULN.PEN SC ×2 (12:22→16:41)
[2022-09-10 17:05] LABS: Bedside Glucose 171 mg/dL (74-106)
[2022-09-10] MEDS: Atorvastatin Calcium 40 MG Tablet PO (20:29)
[2022-09-10 22:55] LABS: Bedside Glucose 95 mg/dL (74-106)
[2022-09-11 05:32] VITALS: BP 129/50; PULSE 52
[2022-09-11] MEDS: hydrALAZINE 50 MG Tablet PO ×3 (05:32→22:00)
[2022-09-11] MEDS: Enoxaparin 30 MG/0.3 ML Syringe SC (05:32)
[2022-09-11 07:00] LABS: Bedside Glucose 128 mg/dL (74-106)
[2022-09-11 07:06] VITALS: RESP 16; TEMP 36.2; O2SAT 100
[2022-09-11 08:16] VITALS: BP 118/42; PULSE 55
[2022-09-11] MEDS: Cholecalciferol (VIT D3) 25 MCG TABLET (1,000 UNITS) 50 MCG PO (08:16)
[2022-09-11] MEDS: Metoprolol Tartrate 25 MG Tablet 12.5 MG PO ×2 (08:16→21:58)
[2022-09-11] MEDS: Glimepiride 2 MG Tablet PO (08:16)
[2022-09-11] MEDS: Losartan Potassium 50 MG Tablet PO (08:16)
[2022-09-11 12:15] LABS: Bedside Glucose 186 mg/dL (74-106)
[2022-09-11] MEDS: Insulin Lispro 100 UNIT/ML INSULN.PEN SC ×2 (12:46→16:33)
[2022-09-11 14:34] VITALS: BP 125/44; PULSE 55
[2022-09-11 15:18] VITALS: BMI 25.6
[2022-09-11 17:10] LABS: Bedside Glucose 176 mg/dL (74-106)
[2022-09-11 21:35] LABS: Bedside Glucose 121 mg/dL (74-106)
[2022-09-11 21:58] VITALS: BP 118/40; PULSE 54
[2022-09-11] MEDS: Senna/Docusate Sodium 1 Tablet 2 TABLET PO (21:58)
[2022-09-11] MEDS: Atorvastatin Calcium 40 MG Tablet PO (21:58)
[2022-09-11 22:00] VITALS: BP 118/40; BP 121/46; PULSE 54; PULSE 56; PULSE 71; RESP 16; TEMP 36; O2SAT 96; O2SAT 99
[2022-09-11 22:07] VITALS: BMI 25.6
[2022-09-12] VITALS (8 sets, daily range): BP systolic 120–151; BP diastolic 38–61; PULSE 49–83; RESP 16–18; TEMP 36.6–36.7; O2SAT 99; BMI 25.6
[2022-09-12] MEDS: Enoxaparin 30 MG/0.3 ML Syringe SC (05:33)
[2022-09-12] MEDS: hydrALAZINE 50 MG Tablet PO ×3 (05:33→21:56)
[2022-09-12 06:50] LABS: Bedside Glucose 114 mg/dL (74-106)
[2022-09-12] MEDS: Cholecalciferol (VIT D3) 25 MCG TABLET (1,000 UNITS) 50 MCG PO (07:47)
[2022-09-12] MEDS: Glimepiride 2 MG Tablet PO (07:47)
[2022-09-12] MEDS: Losartan Potassium 50 MG Tablet PO (07:47)
[2022-09-12] MEDS: Aspirin 81 MG TAB.CHEW PO (07:47)
[2022-09-12] MEDS: Metoprolol Tartrate 25 MG Tablet 12.5 MG PO ×2 (07:48→21:57)
[2022-09-12 11:25] LABS: Bedside Glucose 198 mg/dL (74-106)
--- NOTE | 2022-09-12 11:44 | PCM.PROGNOTE ---
Subjective Subjective Afebrile VSS-she is primarily bradycardic. Blood pressures are adequately controlled. Maintaining appropriate oxygen saturation on RA Oral intake is adequate Blood sugar record was reviewed. Blood sugars at lunchtime are mildly elevated. No recent blood sugars over 200. No hypoglycemia. Discussed with nursing - no problems that need addressed Reviewed the PT/OT/ST notes Medication list reviewed. Cora denies lightheadedness, vertigo, CP, SOB at rest, SOB with exertion, cough, nausea, vomiting, abd pain, diarrhea, constipation, dysuria, calf pain and ankle swelling. She is sleeping well and night and has been eating well. Fluid intake is less than I would like. Objective Data Objective Data Vital Signs: Vital Signs Temp Pulse Resp BP Pulse Ox O2 Del Method 97.9 F 57 L 18 146/47 H 99 Room Air 09/12/22 07:24 09/12/22 07:48 09/12/22 07:24 09/12/22 07:48 09/12/22 07:24 09/12/22 07:24 Oxygen Delivery Method Room Air Weight: 143 lb 11.862 oz Body Mass Index (BMI) 25.6 Intake & Output: Intake and Output for Last 24 Hours 09/10/22 09/11/22 09/12/22 23:59 23:59 23:59 Intake Total 1670 / 1670 1620 / 1620 120 / 120 Output Total 1150 / 1150 1550 / 1550 250 / 250 Balance 520 / 520 70 / 70 -130 / -130 Lab / Micro Data Result Diagrams: 09/14/22 05:59 09/14/22 05:59 Labs: Laboratory Results - last 24 hr 09/11/22 11:52: POC Glucose 186 H 09/11/22 16:28: POC Glucose 176 H 09/11/22 21:08: POC Glucose 121 H 09/12/22 06:14: POC Glucose 114 H 09/12/22 11:00: POC Glucose 198 H Micro: Microbiology 09/07/22 01:20 Stool Stool Occult Blood (AGUSTIN) - Final Physical Exam Const alert and no apparent distress General Appearance: cooperative Resp clear to auscultation bilaterally Auscultation: diminished lung sounds Cardio regular rate, regular rhythm, no murmurs and no gallops GI normal to inspection, nondistended, normoactive bowel sounds, soft to palpation and non-tender Extremity General Extremity: Negative for edema Skin General Skin Exam: no breakdown Rashes: no rashes Wounds: Negative for wounds noted Neuro CN's II-XII intact bilaterally Neuro Narrative: mild paresthesias of the R face, arm and leg Speech: speech normal Assessment & Plan Assessment/Plan (1) Debility: (2) Left-sided cerebrovascular accident (CVA): (3) Right hemiparesis: (4) Uncontrolled type 2 diabetes mellitus: (5) Chronic renal failure: PLAN: Plan 1. Continue therapy 2. CBC and BMP in the a.m. 3. Continue Amaryl 2 mg p.o. every morning. 4. Continue metoprolol 12.5 mg twice daily. We have not had to hold it for bradycardia and she is asymptomatic. The heart rate does increase above 60 with exertion. 5. DC sliding scale insulin Charges/Coding Visit Charges Inpatient E&M: 49260 Subs Hosp L2
[2022-09-12 16:26] LABS: Bedside Glucose 171 mg/dL (74-106)
[2022-09-12] MEDS: Atorvastatin Calcium 40 MG Tablet PO (21:56)
[2022-09-13] VITALS (8 sets, daily range): BP systolic 123–153; BP diastolic 35–48; PULSE 52–57; RESP 16–20; TEMP 36.2–36.9; O2SAT 96; BMI 25.6
[2022-09-13] MEDS: Enoxaparin 30 MG/0.3 ML Syringe SC (05:40)
[2022-09-13] MEDS: hydrALAZINE 50 MG Tablet PO ×3 (05:40→20:57)
[2022-09-13 07:10] LABS: Bedside Glucose 136 mg/dL (74-106)
[2022-09-13] MEDS: Senna/Docusate Sodium 1 Tablet 2 TABLET PO (08:12)
[2022-09-13] MEDS: Cholecalciferol (VIT D3) 25 MCG TABLET (1,000 UNITS) 50 MCG PO (08:12)
[2022-09-13] MEDS: Glimepiride 2 MG Tablet PO (08:13)
[2022-09-13] MEDS: Metoprolol Tartrate 25 MG Tablet 12.5 MG PO ×2 (08:18→20:56)
[2022-09-13] MEDS: Losartan Potassium 50 MG Tablet PO (08:50)
--- NOTE | 2022-09-13 13:25 | CASEMGMT ---
Social Work Team meeting held. Patient present. Attempted to contact patient son via conference call, patient son did not answer, voicemail left encouraging patient son to contact social work assistant to follow up on outcome of meeting. Team recommending for discharge date to be set for 09/16/2022. Patient is agreeable to discharge date and plans to discharge to home alone with patient son to check in with patient often. Patient reports to have a straight cane already set up in the home. Therapy recommending for patient to have continued outpatient physical and occupational therapy in the community, patient agreeable to this recommendation. Patient denies concerns on returning to the community. Proposed discharge date: 09/16/2022 PLAN: Home alone with outpatient therapy services. Social Work to continue to follow. Jesika KRISHNAMURTHY, ISABELLAS
--- NOTE | 2022-09-13 14:43 | PN_ITS ---
Subjective Subjective Cora was seen on team rounds today. No family was available to participate by phone. Afebrile VSS Maintaining appropriate oxygen saturation on RA Oral intake is good Discussed with nursing - no problems that need addressed Reviewed the PT/OT/ST notes Medication list reviewed. Cora denies SOB, CP, palpitations, lightheadedness, nausea/vomiting/abdominal pain, dysuria, cephalgia, calf pain. She is no longer incontinent of urine and is wearing her underwear today. She is in a good mood and she is very co operative. She tells me that she wants to go home. She tells me that she has a chronic cough due to bronchitis BUT, she has noticed that since she has been in the hospital and not smoking the cough is better! Tells me that her son told her if she stops smoking then he will too and she is going to try and stick to this. Objective Data Objective Data Vital Signs: Vital Signs Temp Pulse Resp BP Pulse Ox O2 Del Method 97.2 F L 52 L 16 153/48 H 96 Room Air 09/13/22 07:45 09/13/22 13:46 09/13/22 07:45 09/13/22 13:46 09/13/22 07:45 09/13/22 07:45 Oxygen Delivery Method Room Air Weight: 144 lb 9.972 oz Body Mass Index (BMI) 25.6 Intake & Output: Intake and Output for Last 24 Hours 09/11/22 09/12/22 09/13/22 23:59 23:59 23:59 Intake Total 1620 / 1620 1280 / 1280 440 / 440 Output Total 1550 / 1550 850 / 850 Balance 70 / 70 430 / 430 440 / 440 Lab / Micro Data Result Diagrams: 09/06/22 10:00 09/06/22 10:00 Labs: Laboratory Results - last 24 hr 09/12/22 16:04: POC Glucose 171 H 09/13/22 06:30: POC Glucose 136 H Micro: Microbiology 09/07/22 01:20 Stool Stool Occult Blood (AGUSTIN) - Final Physical Exam Const alert, oriented x3 and no apparent distress General Appearance: cooperative Resp normal respiratory effort, normal air movement and clear to auscultation bilaterally Cardio regular rate, regular rhythm, S1 normal heart sound, S2 normal heart sound and no gallops GI normal to inspection, nondistended, normoactive bowel sounds, soft to palpation and non-tender Extremity no calf tenderness General Extremity: Negative for edema Skin General Skin Exam: no breakdown Rashes: no rashes Neuro Neuro Narrative: She is ambulating with only a cane now. 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 Assessment & Plan Assessment/Plan (1) Debility: (2) Left-sided cerebrovascular accident (CVA): (3) Right hemiparesis: (4) Uncontrolled type 2 diabetes mellitus: (5) Vitamin D deficiency: (6) Hypertension: (7) Chronic renal failure: PLAN: Plan 1. Continue therapy 2. Plan DC home Monday. Son lives across the road and will be available to assist her. 3. recheck a BMP and an HH in the AM 4. DC the accuchecks - blood sugars are well controlled Charges/Coding Visit Charges Inpatient E&M: 75248 Subs Hosp L2
--- NOTE | 2022-09-13 16:52 | CASEMGMT ---
Social Work Telephone call from patient son, Jamie. Jamie reports to have received voicemail. This social worker aide updated Jamie that discharge date has been set for 09/16/2022. Jamie is agreeable to discharge date and plan for patient to discharge to home alone with Jamie to check in. This social worker aide communicating that physical and occupational therapy are recommending for patient to have continued services through outpatient care. Jamie reports that patient would like to have outpatient therapy services through [facility] outpatient clinic. Jamie reports to be able to transport patient to home. Jamie confirms that patient has transportation to outpatient therapy appointments and has all needed DME in the home. This social worker aide obtained order for outpatient PT/OT from Dr. Menon. Social Work to continue to follow to facilitate setting up outpatient therapy services. Proposed discharge date: 09/16/2022 PLAN: Discharge to home alone with outpatient therapy. Jesika KRISHNAMURTHY, MITCHEL
[2022-09-13] MEDS: Magnesium Hydroxide 30 ML UDC PO (20:56)
[2022-09-13] MEDS: Atorvastatin Calcium 40 MG Tablet PO (20:57)
[2022-09-14] VITALS (9 sets, daily range): BP systolic 115–142; BP diastolic 31–53; PULSE 52–63; RESP 16; TEMP 36.8–36.9; O2SAT 96–98; BMI 25.6
[2022-09-14] MEDS: Enoxaparin 30 MG/0.3 ML Syringe SC (05:46)
[2022-09-14] MEDS: hydrALAZINE 50 MG Tablet PO ×3 (05:46→20:34)
[2022-09-14] MEDS: Senna/Docusate Sodium 1 Tablet 2 TABLET PO ×2 (05:46→20:32)
[2022-09-14 06:08] LABS: Hemoglobin 9.8 g/dL (12.0-15.0); Mean Corp Hgb Conc 33.8 g/dL (32-36); Mean Corpuscular Hgb 33.9 pg (27.0-32.0); Mean Corpuscular Volume 100.3 fL (81-99); Mean Platelet Vol. 10.4 fl (6.2-12.0); Platelet Count 229 K/mm3 (150-450); RBC Distribution Width CV 12.5 % (11.6-14.6); RBC Distribution Width SD 45.9 fl (35.1-43.9); Red Blood Count 2.89 M/mm3 (4.2-5.4); White Blood Count 6.3 K/mm3 (4.4-11.0)
[2022-09-14 06:34] LABS: AST(SGOT) 37 U/L (15-37); Alanine Aminotransfer ALT/SGPT 44 U/L (13-56); Albumin, Serum 3.1 g/dL (3.2-5.0); Alkaline Phosphatase 69 U/L (45-117); Anion Gap 4 (5-15); BUN 38 mg/dL (7-18); BUN/Creat Ratio 22.1 RATIO (10-20); Calcium,Total 9.2 mg/dL (8.5-10.1); Chloride 109 mmol/L (98-107); Creatinine, Serum 1.72 mg/dL (0.55-1.02); EST Glomerular Filtration Rate 30 mL/min (>60); Est Glom Filt Rate - Afr Amer 37 mL/min (>60); Estimated Creatinine Clearance 22.15 ml/min; Globulin 3.2 g/dL (2.2-4.2); Glucose 127 mg/dL (74-106); Potassium 4.9 mmol/L (3.5-5.1); Protein, Total 6.3 g/dL (6.4-8.2); Sodium Level 138 mmol/L (136-145)
[2022-09-14] MEDS: Glimepiride 2 MG Tablet PO (08:18)
[2022-09-14] MEDS: Aspirin 81 MG TAB.CHEW PO (08:18)
[2022-09-14] MEDS: Losartan Potassium 50 MG Tablet PO (08:18)
[2022-09-14] MEDS: Cholecalciferol (VIT D3) 25 MCG TABLET (1,000 UNITS) 50 MCG PO (08:18)
[2022-09-14] MEDS: Metoprolol Tartrate 25 MG Tablet 12.5 MG PO ×2 (08:19→20:33)
[2022-09-14] MEDS: Atorvastatin Calcium 40 MG Tablet PO (20:34)
[2022-09-15] VITALS (7 sets, daily range): BP systolic 122–153; BP diastolic 56–74; PULSE 56–79; RESP 16–18; TEMP -12.3–37; O2SAT 97–98; BMI 25.6
[2022-09-15] MEDS: Enoxaparin 30 MG/0.3 ML Syringe SC (06:58)
[2022-09-15] MEDS: hydrALAZINE 50 MG Tablet PO ×3 (06:59→20:15)
[2022-09-15] MEDS: Glimepiride 2 MG Tablet PO (07:56)
[2022-09-15] MEDS: Cholecalciferol (VIT D3) 25 MCG TABLET (1,000 UNITS) 50 MCG PO (07:56)
[2022-09-15] MEDS: Metoprolol Tartrate 25 MG Tablet 12.5 MG PO ×2 (07:57→20:15)
[2022-09-15] MEDS: Losartan Potassium 50 MG Tablet PO (07:57)
--- NOTE | 2022-09-15 16:31 | PCM.DC ---
Discharge Instructions Diet Discharge Diet: Carb Control Diet and - (Low fat and low salt) Activity Discharge Activity: May Not Drive and May Shower Weight Bearing Status: Full weight bearing Keep extremity elevated above heart level: Right Arm Dressing / Incision Call your doctor if you observe: Fever of 101 or Higher, Inability to urinate, Shortness of breath, Dizziness, Fainting spells, Swelling in the ankles, Chest pain, Increased palpitations (irregular heartbeat), Calf discomfort, Uncontrolled pain and - (STROKE symptoms:facial droop, slurred speech, inability to get your words out, weakness on 1 side of the body and not the othernumbness on 1 side of the body and not the otherinability to maintain your balance when walkingvertigo) Follow Up Care Please Follow Up With: Shaquille Travis MD When: 09/27/22 at 3 PM. You will also follow up with Dr. Shayne Snyder who is a neurologist on 10/19/22 at 1:40 PM. Test Results: Test results from this visit will be discussed in further detail at your follow-up appointment, if applicable. Pending Tests Upon Discharge: none Discharge Plan Admission Admit Date/Time: 09/01/22 16:08 Primary Reason for Your Visit: Ischemic CVA Attending Provider: Susan Menon Primary Care Provider: Shaquille Travis Consulting Providers: Lyle Gómez Chi Instructions Patient Instructions: Discharge Instructions for Stroke, Heart Disease Risks Fem, ED How to Quit Smoking Additional Instructions / Restrictions: 1. STROKE symptoms: a. facial droop b. slurred speech c. inability to get your words out d. weakness on 1 side of the body and not the other e. numbness on 1 side of the body and not the other f. inability to maintain your balance when walking g. vertigo 2. Stroke treatment goals: a. BP < 130/80 b. LDL < 70 c. HGBA1C < 7% d. No smoking e. Take all ordered medication f. Lose weight BMI < 25 3. The VERY BEST thing you can do to prevent another stroke is QUIT SMOKING!!! your BP is well controlled. Your blood sugars are very well controlled now. Dr. Travis will want to check your Lipid panel (cholesterol) and a liver panel in another month. The goal for the LDL (bad cholesterol) is less than 70. You have had a great start on quitting smoking because you have not smoked since the stroke on 08/31/22. It has been over 2 weeks and you are through the physical withdrawal symptoms of smoking cessation. Do NOT keep cigarettes in your house and do NOT allow others to smoke in your house. If there are certain situations where you would normally have a cigarette make plans for what you could do instead of have a cigarette.....take a walk, call a friend, play with the cat, etc. Nicotine is a stimulant. It causes the blood vessels to spasm and it can occlude a blood vessel that is already partially clogged with atherosclerosis. This can lead to strokes and heart attacks. You have atherosclerosis from years of smoking, diabetes, high blood pressure and high cholesterol.........it will only continue to get worse if you do not keep the goals for treatment. Having someone else quit with you helps.......if your son quits smoking his risk for heart attacks and strokes will also go down. 4. You have worked hard in therapy and you have made excellent progress........enough so that you are able to go home on your own. 5. You have chronic kidney disease. There are 5 stages of chronic kidney disease and 5 is the worst and at that point you would likely need dialysis. You are hovering at stage 3b - stage 4. Keeping your HGBA1C less than 7 and your BP less than 130/80 will help prevent this from getting worse. I think it would be a good idea to ask Dr. Travis to a regional office coordinator (a kidney specialist). There are 2 groups of nephrologists in [place] Dr. Kylee Mathew and the [facility].......they both do an excellent job and you probably would not have to see a regional office coordinator more than 1-2 times a year.......they will help make sure nothing bad happens to your kidney. When the kidney starts to fail it loses its ability to concentrate the urine so you will continue to make urine even though you are dehydrated.........you can get VERY dehydrated because of this and this will lead to acute on chronic kidney failure so STAY WELL HYDRATED. You should try and drink at least 50 ounces of water a day (that is 1500 cc's). This should keep you from getting dehydrated. You should not be taking Furosemide (also called Lasix) because you will get dehydrated. Swelling in your ankles means you should be cutting back on salt and elevating your legs when you are sitting in a chair. The best way to control the swelling is with compression stockings........they have all kind of fun compression stockings on [employer] and you only need light compression. 6. I had to change the medications you take to control blood sugars because of the chronic kidney disease. You will now take a medication called Amaryl (also called Glimepiride). the other medications are excreted through the kidney which is impaired now. This new medication is processed through the liver and it is a better choice for people with kidney failure. As the kidneys fail BP gets much harder to control. You are now taking 3 medications to control the BP and these include Hydralazine, Metoprolol and Cozaar. Your BP is under good control right now and you have had no adverse side effects with these medications. Your blood pressure 1 day prior to Discharge is 122/62 AND THIS IS PERFECT. I think it would be a good idea for you to have a BP cuff at home so you can keep track of your BP.....keep a record of when you tooik the BP and what the pressure was and take it to Dr. Travis at your next visit. 7. It has been a pleasure to get to know you Cora. If you have ANY questions after you leave rehab please do not hesitate to call me! Office: [phone] CELL: [phone] Happy New Year! Discharge Orders/Prescriptions Prescriptions: New losartan 50 mg Tablet 50 mg PO DAILY Qty: 30 0RF acetaminophen 500 mg Tablet 1,000 mg PO Q6H PRN PRN (Reason: Pain Score 1-10) Qty: 0 0RF glimepiride 2 mg Tablet 2 mg PO BREAKFAST Qty: 30 0RF hydralazine 50 mg Tablet 50 mg PO TID Qty: 90 0RF metoprolol tartrate 25 mg Tablet 12.5 mg PO BID Qty: 30 0RF Rx Instructions: Take 1/2 tablet twice a day cholecalciferol (vitamin D3) 25 mcg (1,000 unit) Tablet 50 mcg PO DAILY Qty: 30 0RF Continued atorvastatin 40 mg Tablet 40 mg PO QHS lisinopril 20 mg Tablet 20 mg PO DAILY aspirin 81 mg Capsule,Delayed Release(Dr/Ec) 81 mg PO QODAY Discontinued furosemide [Lasix] 40 mg Tablet 40 mg PO DAILY PRN (Reason: Edema) glipizide-metformin 2.5-500 mg Tablet 1 tab PO BID Referrals / Follow Up: Shayne Snyder MD [Non-Staff] - 10/19/22 1:40 pm (Please fax discharge summary to office ) Shaquille Travis MD [Primary Care Provider] - 09/27/22 3:00 pm Disposition Disposition (needs filled in before D/C Order can be placed): Home, Self Care
--- NOTE | 2022-09-15 17:24 | PCM.DC.SUM ---
Providers Date of Admission: 09/01/22 Date of Discharge: 09/16/22 Primary Care Physician: Dr. Shaquille Travis MD Reason For Visit: CVA Diagnosis Discharge Diagnosis (1) Debility: Status: Acute Code(s): R53.81 - Other malaise (2) Left-sided cerebrovascular accident (CVA): Status: Acute Code(s): I63.9 - Cerebral infarction, unspecified Plan: Ischemic. Due to atherosclerosis? or to AF? She has not had any AF while on rehab but, she has LAE on ECHO. Will order a 30 day event monitor for DC. (3) Right hemiparesis: Status: Acute Code(s): G81.91 - Hemiplegia, unspecified affecting right dominant side (4) Uncontrolled type 2 diabetes mellitus: Status: Acute Plan: HGBA1C 7.5 at the time of the CVA. (5) Vitamin D deficiency: Status: Acute Code(s): E55.9 - Vitamin D deficiency, unspecified Plan: She was started on a supplement. (6) Hypertension: Status: Chronic Code(s): I10 - Essential (primary) hypertension Plan: Under good control (< 130/80) on Metoprolol 12.5 BID, Hydralazine 50 mg TID and Cozaar 50 mg daily. Lasix discontinued because PO fluid intake is marginal and she has stage 3b-4 CRF and is not able to concentrate her urine. Edema is best controlled with decreased salt intake, elevation and compression. (7) Chronic renal failure: Status: Chronic Code(s): N18.9 - Chronic kidney disease, unspecified Plan: Stage 3b - 4. GFR has ranged from 28-35 while on acute rehab. Creatinine clearance has ranged from 20.59-25.23 depending on how much water we can get her to drink. (8) Macrocytic anemia: Status: Acute Code(s): D53.9 - Nutritional anemia, unspecified Plan: B12 and folate are WNL. TSH and T4 are both normal. Stool for occult blood is negative. (9) Diastolic dysfunction: Status: Acute Code(s): I51.89 - Other ill-defined heart diseases (10) LVH (left ventricular hypertrophy): Status: Acute Code(s): I51.7 - Cardiomegaly Plan: EF is 55-60% on TTE. (11) Nicotine dependence, cigarettes, uncomplicated: Status: Acute Code(s): F17.210 - Nicotine dependence, cigarettes, uncomplicated Plan: Has not had a cigarette since 08/31/22 and she is contemplating quitting for good. (12) Bilateral carotid artery stenosis: Status: Acute Code(s): I65.23 - Occlusion and stenosis of bilateral carotid arteries Plan: > 60 % stenosis of BL carotids on CTA of the neck. Needs follow up with vascular surgery. Has seen Dr. Alton Gardiner in the past. (13) Hyperlipidemia: Status: Acute Code(s): E78.5 - Hyperlipidemia, unspecified Plan: Total cholesterol was 158, triglycerides 102, HDL 69 and the LDL was 69 on 40 mg of atorvastatin daily. (14) Asymmetric septal hypertrophy: Status: Acute Code(s): I42.2 - Other hypertrophic cardiomyopathy Plan: Severe increase in the ventricular septum measuring 1.5 cm ion thickness. (15) COPD (chronic obstructive pulmonary disease): Status: Chronic Code(s): J44.9 - Chronic obstructive pulmonary disease, unspecified Plan: She tells me that she has used a inhaler in the past for chronic bronchitis. Cough is better since she has not smoked for just over 2 weeks. BS's are diminished but there is no wheezing at the time of DC. Plan Discharge home on 09/16/2022 with outpatient PT/OT in [place]. Follow-up with Dr. Shayne Francis and with her PCP, Dr. Pete Travis. Will need to follow-up with Dr. Alton Gardiner regarding bilateral carotid stenosis greater than 60% bilaterally on CTA of the neck. 30-day event monitor at discharge and then follow-up with cardiology. Will need a lipid panel and liver panel in 30 days. Recommend follow-up with nephrology for stage IIIb?stage IV chronic renal failure. Medications at Discharge Home Medications aspirin 81 mg capsule,delayed release 81 mg PO QODAY Heart health 09/01/22 atorvastatin 40 mg tablet 40 mg PO QHS Cholestrol 09/01/22 lisinopril 20 mg tablet 20 mg PO DAILY BP 09/01/22 acetaminophen 500 mg tablet 1,000 mg PO Q6H PRN PRN Pain Score 1-10 #0 tabs 09/15/22 cholecalciferol (vitamin D3) 25 mcg (1,000 unit) tablet 50 mcg PO DAILY #30 tabs 09/15/22 glimepiride 2 mg tablet 2 mg PO BREAKFAST #30 tabs 09/15/22 hydralazine 50 mg tablet 50 mg PO TID #90 tabs 09/15/22 losartan 50 mg tablet 50 mg PO DAILY #30 tabs 09/15/22 metoprolol tartrate 25 mg tablet 12.5 mg PO BID #30 tabs 09/15/22 Hospital Course Operations None Procedures Transthoracic echo (Done at [facility]. Ejection fraction is normal at 55 to 60% with no wall motion abnormalities. There is ventricular hypertrophy, diastolic dysfunction and the ventricular septum is severely increased at 1.5 cm. There is also left atrial enlargement.) Summary of Care Provided Minutes Spent on Discharge: 40 Hospital Course: Cora Atkins is a 81-year-old female with a past medical history of bilateral carotid vascular stenosis (greater than 60% bilaterally on CTA of the neck 08/31/2022), hypertension, diabetes mellitus type 2, hyperlipidemia, tobacco dependence, chronic renal failure, suspected COPD/chronic bronchitis and LVH with diastolic dysfunction who presented to the ED at [facility] on 08/31/22 with complaints of right side weakness and numbness that started on 08/30/2022. She was hypertensive in the emergency department. Stat noncontrast CT head was negative. CTA of the head revealed no significant areas of stenosis but the CT neck showed greater than 60% bilateral internal carotid artery stenosis. She has been seeing Dr. Alton Gardiner for this. She was outside the window for tPA. An MRI of the brain showed an acute ischemic infarct at the junction of the left posterior limb internal capsule and posterior putamen. Hemoglobin A1c was not adequately controlled at 7.5%. Lipid panel showed a total cholesterol of 158, triglycerides of 102, HDL of 69 and an LDL of 69. She had been taking 40 mg of atorvastatin daily. Creatinine was elevated at 1.57. Hemoglobin was 11.7 at admission with macrocytic indices and dropped to 9.6 on 09/01/2022. TSH and T4 were within normal limits. B12 and folate were normal. A Hemoccult stool was negative when she was in rehab. Echocardiogram at [facility] showed left ventricular hypertrophy with an ejection fraction of 55 to 60% and no wall motion abnormalities. There was diastolic dysfunction and the ventricular septum was severely thickened at 1.5 cm. There was also left atrial enlargement. She has no history of atrial fibrillation. She was admitted to [place] for acute ischemic CVA. she was evaluated by PT/OT and ST and discharge to acute was recommended. Cora was transferred to [facility] acute rehab on 09/01/22 for 3 hours of therapy daily to restore function/independence at or near her level prior to the CVA. Cora lives alone and was independent with all ADL's prior to the stroke. Creatinine was 1.85 at arrival to rehab with a creatinine clearance of only 20.59. Lasix was discontinued and she was hydrated and the creatinine has ranged from 1.51-1.85 during her stay on acute rehab. GFR has ranged from 28-35 which is consistent with stage III?stage IV chronic renal failure. She has never seen a print manager. Cora does not like to drink water despite constant encouragement to increase fluid intake. She can not concentrate her urine due to CRF and she is at risk for acute on chronic renal failure due to dehydration. She has had no edema of the ankles during her stay on rehab and she has had no rales. She was not discharged on Lasix. At best she takes 1200 cc's of fluid daily and sometimes she does not even take 1 L daily. HGB at NM is 9.8. The anemia may be due to CRF. Cora was given smoking cessation counselling while on rehab and she is considering quitting for good. She has noticed that since she has not been smoking the chronic cough is much better. Her son is considering smoking cessation if she quits and this is helping her to get motivated to quit because she thinks he should stop smoking. Because she was in stage 4 renal failure at admission to rehab Metformin and Glipizide were discontinued due to increased risk for acidosis and hypoglycemia. She was started on Amaryl and at the time of DC she is taking 2 mg daily. BS's are well controlled with no hypoglycemia. She came to us on Lisinopril 20 mg for HTN. Blood pressures were not adequately controlled. At NM she has been stable on Metoprolol 12.5 mg BID, Cozaar 50 mg daily and hydralazine 50 mg 3 times daily. The BP 1 day prior to DC is 122/62. Cora did quite well with therapy. Prior to DC she was ambulating with a straight cane only on various surfaces with no LOB at SBA. Cora has ambulated up to 336' with a st cane at CGA/SBA on various surfaces. She has asceneded/descended 8 steps with [address] cane at CGA/SBA. She is independent with eating and grooming and SBA with bathing. She is supervision/set up with upper and lower body dressing and SBA for tub/shower transfer. She knows to use the shower chair when bathing to decrease risk for LOB/falls. Cora's son and his family live across the road from her and are available to help when needed. She will be getting additional PT/OT as an OP in [facility]. Cora was discharged home on 09/16/22 and will follow up with Dr. Travis and Dr. Snyder post DC. Appts were made for her prior to DC for both Dr. Travis and Dr. Snyder. Physical Exam Const alert, oriented x3 and no apparent distress Constitutional Narrative: Pleasanat and appropriate General Appearance: cooperative Eyes PERRL and EOMs intact bilaterally Neck supple Resp normal respiratory effort and clear to auscultation bilaterally Resp Narrative: No conversational dyspnea. Effort and Inspection: Negative for tachypneic, respiratory distress or labored Auscultation: diminished lung sounds Cardio regular rate, regular rhythm, no murmurs and no gallops Cardio Narrative: No ectopy GI normal to inspection, nondistended, normoactive bowel sounds, soft to palpation and non-tender Extremity no calf tenderness General Extremity: Negative for edema Skin Skin Narrative: warm and dry General Skin Exam: no breakdown Rashes: no rashes Neuro CN's II-XII intact bilaterally Neuro Narrative: Still with some numbness R side. No dysarthria. Good strength R leg and improved strength in the RUE. Psych affect normal Psych Narrative: making good eye contact. Appearance: appropriate Weight / BMI Weight Weight: 143 lb 3.2 oz Body Mass Index (BMI) 25.6 ABG / Lab / Microbiology Data Result Diagrams: 09/14/22 05:59 09/14/22 05:59 Microbiology: Microbiology 09/07/22 01:20 Stool Stool Occult Blood (AGUSTIN) - Final D/C Instructions Discharge Diet: Carb Control Diet and - (Low fat and low salt) Weight Bearing Status: Full weight bearing Keep extremity elevated above heart level: Right Arm Call your doctor if you observe: Fever of 101 or Higher, Inability to urinate, Shortness of breath, Dizziness, Fainting spells, Swelling in the ankles, Chest pain, Increased palpitations (irregular heartbeat), Calf discomfort, Uncontrolled pain and - (STROKE symptoms:facial droop, slurred speech, inability to get your words out, weakness on 1 side of the body and not the othernumbness on 1 side of the body and not the otherinability to maintain your balance when walkingvertigo) Pending Tests Upon Discharge: none Please Follow Up With: Shaquille Travis MD When: 09/27/22 at 3 PM. You will also follow up with Dr. Shayne Snyder who is a neurologist on 10/19/22 at 1:40 PM. Meaningful Use Info Meaningful Use Diagnoses (Choose all that apply): Ischemic CVA CVA Therapy Assessed for PT,OT and/or ST?: Yes Ischemic Stroke Antithrombotic order at d/c?: Yes Dx of Atrial fib/flutter?: No Anticoagulant at discharge?: No Reason anticoagulant not ordered: Treatment not Indicated Statins at discharge?: Yes Primary Dx Acute Ischemic CVA?: Yes IV tPA ordered during stay?: No Reason IV t-PA not ordered: Treatment not Indicated Discharge Plan Admission Admit Date/Time: 09/01/22 16:08 Primary Reason for Your Visit: Ischemic CVA Attending Provider: Susan Menon Primary Care Provider: Shaquille Travis Consulting Providers: Lyle Gómez Chi Instructions Patient Instructions: Discharge Instructions for Stroke, Heart Disease Risks Fem, ED How to Quit Smoking Additional Instructions / Restrictions: 1. STROKE symptoms: a. facial droop b. slurred speech c. inability to get your words out d. weakness on 1 side of the body and not the other e. numbness on 1 side of the body and not the other f. inability to maintain your balance when walking g. vertigo 2. Stroke treatment goals: a. BP < 130/80 b. LDL < 70 c. HGBA1C < 7% d. No smoking e. Take all ordered medication f. Lose weight BMI < 25 3. The VERY BEST thing you can do to prevent another stroke is QUIT SMOKING!!! your BP is well controlled. Your blood sugars are very well controlled now. Dr. Travis will want to check your Lipid panel (cholesterol) and a liver panel in another month. The goal for the LDL (bad cholesterol) is less than 70. You have had a great start on quitting smoking because you have not smoked since the stroke on 08/31/22. It has been over 2 weeks and you are through the physical withdrawal symptoms of smoking cessation. Do NOT keep cigarettes in your house and do NOT allow others to smoke in your house. If there are certain situations where you would normally have a cigarette make plans for what you could do instead of have a cigarette.....take a walk, call a friend, play with the cat, etc. Nicotine is a stimulant. It causes the blood vessels to spasm and it can occlude a blood vessel that is already partially clogged with atherosclerosis. This can lead to strokes and heart attacks. You have atherosclerosis from years of smoking, diabetes, high blood pressure and high cholesterol.........it will only continue to get worse if you do not keep the goals for treatment. Having someone else quit with you helps.......if your son quits smoking his risk for heart attacks and strokes will also go down. 4. You have worked hard in therapy and you have made excellent progress........enough so that you are able to go home on your own. 5. You have chronic kidney disease. There are 5 stages of chronic kidney disease and 5 is the worst and at that point you would likely need dialysis. You are hovering at stage 3b - stage 4. Keeping your HGBA1C less than 7 and your BP less than 130/80 will help prevent this from getting worse. I think it would be a good idea to ask Dr. Travis to a print manager (a kidney specialist). There are 2 groups of nephrologists in [place] Dr. Kylee Mathew and the [facility].......they both do an excellent job and you probably would not have to see a print manager more than 1-2 times a year.......they will help make sure nothing bad happens to your kidney. When the kidney starts to fail it loses its ability to concentrate the urine so you will continue to make urine even though you are dehydrated.........you can get VERY dehydrated because of this and this will lead to acute on chronic kidney failure so STAY WELL HYDRATED. You should try and drink at least 50 ounces of water a day (that is 1500 cc's). This should keep you from getting dehydrated. You should not be taking Furosemide (also called Lasix) because you will get dehydrated. Swelling in your ankles means you should be cutting back on salt and elevating your legs when you are sitting in a chair. The best way to control the swelling is with compression stockings........they have all kind of fun compression stockings on [employer] and you only need light compression. 6. I had to change the medications you take to control blood sugars because of the chronic kidney disease. You will now take a medication called Amaryl (also called Glimepiride). the other medications are excreted through the kidney which is impaired now. This new medication is processed through the liver and it is a better choice for people with kidney failure. As the kidneys fail BP gets much harder to control. You are now taking 3 medications to control the BP and these include Hydralazine, Metoprolol and Cozaar. Your BP is under good control right now and you have had no adverse side effects with these medications. Your blood pressure 1 day prior to Discharge is 122/62 AND THIS IS PERFECT. I think it would be a good idea for you to have a BP cuff at home so you can keep track of your BP.....keep a record of when you tooik the BP and what the pressure was and take it to Dr. Travis at your next visit. 7. It has been a pleasure to get to know you Cora. If you have ANY questions after you leave rehab please do not hesitate to call me! Office: [phone] CELL: [phone] Happy New Year! Discharge Orders/Prescriptions Prescriptions: New losartan 50 mg Tablet 50 mg PO DAILY Qty: 30 0RF acetaminophen 500 mg Tablet 1,000 mg PO Q6H PRN PRN (Reason: Pain Score 1-10) Qty: 0 0RF glimepiride 2 mg Tablet 2 mg PO BREAKFAST Qty: 30 0RF hydralazine 50 mg Tablet 50 mg PO TID Qty: 90 0RF metoprolol tartrate 25 mg Tablet 12.5 mg PO BID Qty: 30 0RF Rx Instructions: Take 1/2 tablet twice a day cholecalciferol (vitamin D3) 25 mcg (1,000 unit) Tablet 50 mcg PO DAILY Qty: 30 0RF Continued atorvastatin 40 mg Tablet 40 mg PO QHS lisinopril 20 mg Tablet 20 mg PO DAILY aspirin 81 mg Capsule,Delayed Release(Dr/Ec) 81 mg PO QODAY Discontinued furosemide [Lasix] 40 mg Tablet 40 mg PO DAILY PRN (Reason: Edema) glipizide-metformin 2.5-500 mg Tablet 1 tab PO BID Referrals / Follow Up: Shayne Snyder MD [Non-Staff] - 10/19/22 1:40 pm (Please fax discharge summary to office ) Shaquille Travis MD [Primary Care Provider] - 09/27/22 3:00 pm Disposition Disposition (needs filled in before D/C Order can be placed): Home, Self Care Charges/Coding Visit Charges Inpatient E&M: [id number] Disch Hosp
[2022-09-15] MEDS: Atorvastatin Calcium 40 MG Tablet PO (20:15)
[2022-09-16 05:43] VITALS: BP 136/61; PULSE 59
[2022-09-16] MEDS: hydrALAZINE 50 MG Tablet PO (05:43)
[2022-09-16] MEDS: Enoxaparin 30 MG/0.3 ML Syringe SC (05:43)
[2022-09-16 07:28] VITALS: BP 136/50; PULSE 52; RESP 16; TEMP 36.8; O2SAT 95
[2022-09-16] MEDS: Aspirin 81 MG TAB.CHEW PO (08:27)
[2022-09-16] MEDS: Glimepiride 2 MG Tablet PO (08:27)
[2022-09-16] MEDS: Losartan Potassium 50 MG Tablet PO (10:25)
[2022-09-16] MEDS: Cholecalciferol (VIT D3) 25 MCG TABLET (1,000 UNITS) 50 MCG PO (10:27)
[2022-09-16 10:28] VITALS: BP 122/48; PULSE 55
[2022-09-16] MEDS: Metoprolol Tartrate 25 MG Tablet 12.5 MG PO (10:28)
[2022-09-16 11:06] VITALS: PULSE 55; RESP 18; O2SAT 95
--- NOTE | 2022-09-16 13:07 | NURSING ---
Fax script to [phone] (cardio dept) for 30 day heart monitor
== END 2022-09-16 13:30 | disposition home or self-care (01) | DRG 57 ==
PROVIDERS: Admitting Provider Family Medicine Geriatric Medicine; PCP Family Medicine; Visit Provider Internal Medicine
DX: I69.352 Hemiplegia and hemiparesis following cerebral infarction affecting left dominant side (principal); E87.0 Hyperosmolality and hypernatremia; I42.2 Other hypertrophic cardiomyopathy; N18.4 Chronic kidney disease, stage 4 (severe); E11.22 Type 2 diabetes mellitus with diabetic chronic kidney disease; J44.9 Chronic obstructive pulmonary disease, unspecified; E78.5 Hyperlipidemia, unspecified; F17.210 Nicotine dependence, cigarettes, uncomplicated; I25.10 Atherosclerotic heart disease of native coronary artery without angina pectoris; I12.9 Hypertensive chronic kidney disease with stage 1 through stage 4 chronic kidney disease, or unspecified chronic kidney disease; Z79.84 Long term (current) use of oral hypoglycemic drugs; Z79.82 Long term (current) use of aspirin; Z79.899 Other long term (current) drug therapy
CPT/HCPCS: 36415; 80048; 80053; 82274; 82306; 82607; 82746; 82962; 83735; 84100; 85025; 85027; 92507; 92523; 92610; 97110; 97112; 97116; 97129; 97130; 97162; 97166; 97530; 97535; 97803; 99251; G0463